=== PATIENT | female | born 1950 | race African-American/Black ===

== ENCOUNTER 2019-12-31 10:18 | Outpatient (CLI) | payer BC, SELFPAY ==
--- NOTE | ~2019-12-31 | XR_ITS ---
EXAMINATION: XR hip RT min 2V DATE: 12/31/2019 11:10 INDICATION: Right hip pain TECHNIQUE: Anteroposterior , frog leg and cross-table lateral views of the right hip were obtained. COMPARISON: None. FINDINGS: Alignment is normal. No fracture or suspected avascular necrosis. Right hip joint space appears relat ively preserved. Cluster of calcification in the left hemipelvis suggestive of a degenerated uterine fibroid. Small enthesophytes at the anterior iliac spine and ischial tuberosity. 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 Lower lumbar spondylosis with severe facet osteoarthritis. IMPRESSION: 1. Normal right hip joint space. No acute osseous abnormality. Reviewed, dictated and finalized at location A.
--- NOTE | ~2019-12-31 | XR_ITS ---
XR knee RT min 4V 12/31/2019 11:10 Indication: Right knee pain Procedure: 5 views right knee Comparison: No prior studies for comparison. Findings: No fracture, subluxation or dislocation. There is mild osteoarthritis of the patellofemoral compartment. No significant joint effusion. Impression: 1: No acute bone or joint abnormality. Reviewed, dictated and finalized at location A. Impression: 1: No acute bone or joint abnormality.
--- NOTE | ~2019-12-31 | XR_ITS ---
EXAMINATION: XR foot RT min 3V, XR ankle RT min 3V EXAM DATE: 12/31/2019 11:10 INDICATION: No known recent injury provided at this time. Pain of the right foot, ankle. TECHNIQUE: Right foot dorsoplantar, lateral and oblique projections obtained and reviewed. Right ank le frontal, lateral and oblique projections obtained and reviewed. There is no prior study for jose miguel rincon. FINDINGS: Right metatarsal bones unremarkable. Bulky right calcaneal inferior spur and moderate siz ed posterior spur. There is mild 1st MTP primary osteoarthritis. No periosteal reaction or band of s clerosis to suggest subacute stress fracture. There are no bony erosions identified. There are no acu te fractures or dislocations identified. There is no subcutaneous gas. The soft tissue is unremarka ble. There are no radiopaque foreign bodies. IMPRESSION: 1. Calcaneal spurs. 2. Mild 1st MTP osteoarthritis. Reviewed, dictated and finalized at location B. IMPRESSION: 1. Calcaneal spurs. 2. Mild 1st MTP osteoarthritis.
== END 2019-12-31 10:19 | disposition home or self-care (01) ==
PROVIDERS: PCP Physician Assistant; Visit Provider Physician Assistant
DX: M25.571 Pain in right ankle and joints of right foot (principal); M77.31 Calcaneal spur, right foot; M19.071 Primary osteoarthritis, right ankle and foot
CPT/HCPCS: 73502; 73564; 73610; 73630

== ENCOUNTER 2020-02-18 15:23 | Outpatient (CLI) | payer BC, SELFPAY ==
--- NOTE | ~2020-02-18 | MM_ITS ---
EXAMINATION: MM screening [facility] BI w janessa HISTORY: Screening mammogram TECHNIQUE: Craniocaudal and mediolateral oblique 3-D tomosynthesis images were obtained and synthetic 2-D images were generated. CAD analysis was submitted and interpreted. COMPARISON: 12/23/2018, 05/14/2017 bilateral digital screening mammogram examinations BREAST PARENCHYMAL COMPOSITION: The breasts are almost entirely fatty. FINDINGS: There is no evidence of suspicious mass, calcification, or architectural distortion to sugg est malignancy in either breast. There has been no suspicious interval change. IMPRESSION: 1. No mammographic evidence of malignancy. 2. Recommend routine screening mammography in one year. BI-RADS Category 1: Negative Reviewed, dictated and finalized at location A.
== END 2020-02-18 15:24 | disposition home or self-care (01) ==
PROVIDERS: PCP Physician Assistant; Visit Provider Physician Assistant
DX: Z12.31 Encounter for screening mammogram for malignant neoplasm of breast (principal)
CPT/HCPCS: 77063; 77067

== ENCOUNTER 2020-03-07 00:34 | Outpatient (CLI) | payer BC, SELFPAY ==
[2020-03-07 16:32] LABS: SARS-CoV-2 RNA PCR Negative
== END 2020-03-07 00:35 | disposition home or self-care (01) ==
LOC: ANHCOVIDDT 00:34
PROVIDERS: PCP Physician Assistant; Visit Provider Internal Medicine Gastroenterology
DX: Z01.812 Encounter for preprocedural laboratory examination (principal); Z20.828 Contact with and (suspected) exposure to other viral communicable diseases
CPT/HCPCS: 87635; C9803; U0003

== ENCOUNTER 2020-03-09 00:22 | Day surgery (SDC) | payer BC, SELFPAY ==
[2020-03-01 14:11] VITALS: BMI 23.1
[2020-03-09] MEDS: LACTATED RINGERS 1,000 ML 150 ML IV CONT (07:13)
[2020-03-09 07:19] LABS: Glucose Point of Care 185 (65-105)
--- NOTE | 2020-03-09 07:21 | P.PNAN_ITS ---
Anes - Initial Pre Proc Eval Procedure: Operation Date: 03/09/20 08:00 Proposed Procedures p Screening Colonoscopy - Brandt Agosto MD Date/Time: 03/09/20 07:21 Surgeon: Brandt Agosto MD Pre Op Diagnosis: Neoplasm Screening Patient Data Age: 70 Gender: F Height: 5 ft 6 in Weight: 65 kg Allergies Allergy/AdvReac Type Severity Reaction Status Date / Time No Known Allergies Allergy Unverified 03/09/20 07:18 Home Medications Medication Instructions Recorded Confirmed Type amlodipine 10 mg PO DAILY 03/01/20 03/01/20 History aspirin 81 mg PO DAILY 03/01/20 03/01/20 History atorvastatin 20 mg PO DAILY 03/01/20 03/01/20 History chlorthalidone 50 mg PO DAILY 03/01/20 03/01/20 History insulin glargine [Lantus Solostar 36 unit SUBCUT DAILY 03/01/20 03/09/20 History U-100 Insulin] losartan 100 mg PO DAILY 03/01/20 03/01/20 History Laboratory Tests 03/09/20 07:11 POC Capillary Glucose 185 mg/dl H mg/dl (65-105) Patient hx anesthesia problems: none Family hx anesthesia problems: none [facility] Past Medical History Medical History Diabetes Hyperlipidemia Hypertension Hypothyroid Social History Social History Substance use: never Substance use type: does not use Living arrangements: with family Spiritual care concerns: No Anes - Eval Final PreProcedure Day of Procedure 03/09/20 07:21 Patient weight: normal Heart: regular rate and rhythm Lungs: clear to auscultation Airway: Mallampati scale class II Neurological: alert and oriented Last oral intake: >/= 8 hours ASA classification: III Emergent: no Anesthetic plan: proceed Anesthesia type and monitoring: general GIVS and standard monitoring Informed Consent: The patient's anesthetic plan and its attendant risks and benefits were discussed with the patient/family/POA. Questions were solicited an d answers provided to the satisfaction of the patient/family/POA.
[2020-03-09 07:23] VITALS: BP 145/74; PULSE 98; TEMP 36.2; O2SAT 100; BMI 22.8
--- NOTE | 2020-03-09 08:09 | PM.HPGS ---
History of Present Illness History of Present Illness Consent: Risks, benefits, and alternatives have been discussed and questions answered. Patient agrees to proceed with procedure. Chief complaint: Neoplasm Screening Narrative: Flower Cadena is a 70 year old female here for first screening colonoscopy Review of Systems Constitutional: Constitutional: Denies headache(s) and Denies weakness Eyes: Eyes: Denies blurry vision ENT: Reports Normal hearing present, Denies headache(s) and Denies neck pain Cardiovascular: Cardiovascular: Denies chest pain and Denies dyspnea Respiratory: Respiratory: Denies dyspnea Gastrointestinal: Gastrointestinal: Reports no additional gastrointestinal complaints Genitourinary: Genitourinary: Denies dysuria Musculoskeletal: Musculoskeletal: Denies neck pain Integumentary/Breasts: Skin/Breast: Denies dry skin Neurologic: Reports Normal hearing present, Denies headache(s) and Denies weakness Psychiatric: Psychiatric: Denies anxiety Endocrine: Endocrine: Denies change in body appearance Hematologic/Lymphatic: Hematologic/Lymphatic: Denies easy bleeding Allergic/Immunologic: Allergic/Immunologic: Denies urticaria PMFSH Past Medical History Medical History Diabetes Hyperlipidemia Hypertension Hypothyroid Social History Social History Substance use: never Substance use type: does not use Living arrangements: with family Spiritual care concerns: No Meds Home Medications and Allergies Home Medications Medication Instructions Recorded Confirmed Type amlodipine 10 mg PO DAILY 03/01/20 03/01/20 History aspirin 81 mg PO DAILY 03/01/20 03/01/20 History atorvastatin 20 mg PO DAILY 03/01/20 03/01/20 History chlorthalidone 50 mg PO DAILY 03/01/20 03/01/20 History insulin glargine [Lantus Solostar 36 unit SUBCUT DAILY 03/01/20 03/09/20 History U-100 Insulin] losartan 100 mg PO DAILY 03/01/20 03/01/20 History Allergies Allergy/AdvReac Type Severity Reaction Status Date / Time No Known Allergies Allergy Unverified 03/09/20 07:18 Vital Signs Vital Signs - 24 hr 03/09/20 07:23 Temperature 97.1 F L Pulse Rate 98 Blood Pressure 145/74 H Pulse Oximetry 100 Exam Const: General: comfortable and no acute distress HENMT: General nose exam: Normal nares present Eyes: General: appearance normal, both eyes and all related structures Neck: Neck: no JVD Resp: Auscultation: clear to auscultation bilaterally Cardio: Rate: regular rate Rhythm: regular rhythm GI: Inspection: non-distended GI Palp: Yes Soft to palpation Skin: General skin exam: normal color Neuro: General: gait normal Speech: normal speech Extrem: General: normal to inspection Psych: Mental Status: mental status grossly normal Assessment and Plan Assessment and plan (1) Colon cancer screening: Code(s): Z12.11 - Encounter for screening for malignant neoplasm of colon Status: Acute Assessment and Plan: will proceed with colonoscopy (2) Hypertension: Code(s): I10 - Essential (primary) hypertension Status: Acute
[2020-03-09 08:30] VITALS: BP 125/90; PULSE 80; RESP 22; O2SAT 99
[2020-03-09 08:40] VITALS: BP 120/62; PULSE 79; RESP 20; O2SAT 99
[2020-03-09 08:49] LABS: Glucose Point of Care 172 (65-105)
[2020-03-09 08:50] VITALS: BP 125/69; PULSE 78; RESP 19; O2SAT 100
== END 2020-03-09 09:26 | disposition home or self-care (01) ==
PROVIDERS: PCP Physician Assistant; Visit Provider Internal Medicine Gastroenterology
PROC: 0DJD8ZZ Inspection of Lower Intestinal Tract, Via Natural or Artificial Opening Endoscopic (ICD-10-PCS; CPT 45378; principal; 2020-03-09 08:00)
DX: Z12.11 Encounter for screening for malignant neoplasm of colon (principal); K64.8 Other hemorrhoids; I10 Essential (primary) hypertension; E78.5 Hyperlipidemia, unspecified; E11.9 Type 2 diabetes mellitus without complications; E03.9 Hypothyroidism, unspecified; Z79.4 Long term (current) use of insulin; Z79.82 Long term (current) use of aspirin
CPT/HCPCS: G0121; J2704; J7120